=== PATIENT | female | born 1945 | race Caucasian/White ===

== ENCOUNTER 2016-09-13 07:58 | Inpatient (IN) ==
--- NOTE | 2016-09-13 07:51 | Discharge Summary ---
<Yelena Bingham - Last Filed: 09/13/16 07:49> Date of Encounter: 09/13/16 - Discharge Medications Prescriptions: Tramadol HCl [Ultram] 50 mg PO TID PRN #30 tab PRN Reason: Pain Home Medications: Allopurinol [Zyloprim 100 MG] 100 mg PO BID 09/13/16 [History] Aspirin Enteric Coated [Aspirin EC] 325 mg PO DAILY #21 tablet. 09/13/16 [Rx] Calcium Carbonate/Vitamin D3 [Calcium 600 + Vit D Tablet] 1 tab PO DAILY [History] Cetirizine HCl [All Day Allergy] 10 mg PO DAILY 09/13/16 [History] Furosemide [Lasix] 20 mg PO DAILY PRN 09/13/16 [History] Metoprolol XL (24 HR) Succ [Toprol Xl] 50 mg PO 1200 09/13/16 [History] Prazosin HCl [Minipress] 2 mg PO BID 09/13/16 [History] Quinapril HCl [Accupril] 10 mg PO HS 09/13/16 [History] Tramadol HCl [Ultram] 50 mg PO TID PRN #30 tab 09/16/16 [Rx] Allergies/Adverse Reactions: Allergies latex Allergy (Verified 09/13/16 09:54) Hives TESTED NEGATIVE Primary care physician: Brad Davis, - Patient Status Disposition: Transfer Inpatient Rehab Fac Condition: Fair - Discharge Instructions Follow Up With: Charles Craven MD [Partnered Physician] - 10/13/16 5:10 pm Yelena Bingham, PAC [Physician Database Reporting Consultant] - 09/23/16 8:30 am Brad Davis DO [Primary Care Provider] - Additional Instructions: Discharge Instructions: Total Knee Replacement Please call [facility] ([phone]), your Primary Care Physician, or report to the Emergency Room if you have any of the following symptoms: Nausea, vomiting, fever greater that 101.5, swelling, chest pain, shortness of breath, increased pain/redness/drainage/odor for your incision site, numbness/ tingling, or any other concerning symptoms. ACTIVITY:Weight-bearing as tolerated. You may progress off support (crutches or walker) as tolerated. MEDICATIONS: Upon discharge resume your home medications. Take all the medications as prescribed. Take a stool softener if taking narcotic pain medications. Stool softeners are only effective if you drink enough fluids. Drink 6-8 glass of water or fluids a day, unless this is not allowed for another health problem. Despite using stool softeners, if you haven't had a bowel movement in 3 days, please switch to a gentle laxative. Gentle laxatives are sold over the counter. You should have a bowel movement within 24 hours, if not call the office. You will be discharged from the hospital with a prescription for pain medication. You are encouraged to decrease the use of narcotic pain medication as tolerated. Should you require a refill, please call the office. [facility] prescribes narcotic pain medication for only 4-6 weeks after surgery. If you require pain medication beyond this time period, you may be referred to your Primary Care Physician or to the Pain Clinic for further evaluation. Plan ahead for refills on pain medication as many narcotics either need to be picked up at the office or mailed. It is best to call 48-72 hours in advance of needing a prescription refill so you don't run out of medication. To help control the post-operative pain, you may take NSAIDs (Aleve,Advil, Motrin, Ibuprofen, Naprosyn) or Tylenol as prescribed on the bottle in addition to the pain medication. ANTICOAGULATION (blood thinners): Continue your Aspirin, Lovenox or Coumadin as prescribed to help prevent a blood clot in the leg or in the lungs. As long as your incision remains dry and you tolerate the NSAIDs (Aleve, Advil, Motrin, ibuprofen, naprosyn), it is OK to use the NSAIDS while you are taking your anticoagulation medication. Should your incision start to drain, stop the NSAID and contact our office. Common symptoms of blood clot in the legs include: localized pain, swelling, calf tenderness, redness or discoloration of the skin. Blood clot in the lung symptoms include: shortness of breath, rapid pulse, sweating, and chest pain that worsens with deep breathing, coughing up blood, lightheadedness, feelings of anxiety. If you experience any of these symptoms notify your physician immediately, go to the emergency room, or if having trouble breathing, call 911. WOUND CARE: Leave the dressing on for 7 to 10days. You may change the dressing if it becomes saturated greater than 50%. Do not get the dressing wet at anytime. Wash your hands with antibacterial soap, rinse and dry prior to any wound care. If you have dee the visiting nurse or rehab facility can remove the stapes 10-14 days after surgery and place steri-strips across the wound. Leave the steri-strips in place until they fall off on their won. You may let water from the shower run on top of the steri-strips. If you do not have a visiting nurse or rehab facility, you will need to return to the office at 10-14 days for the dee to be removed. If you have itching or redness around the dressing call the office. FOLLOW-UP: Please follow up with your surgeon in the orthopedic clinic in 4 weeks from the day of surgery. If you have dee that need to be removed, you will need to come back to the office in 10-14 days from the day of surgery. - Hospital Course Hospital course: Ms. Avila is a 71 year old female - Time Spent with Patient Total time spent providing and/or coordinating discharge services: <Fiona Soria - Last Filed: 09/13/16 09:45> Date of Encounter: 09/13/16 - Discharge Diagnosis (1) Arthritis of left knee Priority: Primary Status: Acute (2) Hypertension Priority: Secondary Status: Chronic Qualifiers: Hypertension type: unspecified secondary hypertension Qualified Code(s): I15.9 - Secondary hypertension, unspecified; I15 - Secondary hypertension (3) Chronic renal failure, stage 3 (moderate) Priority: Secondary Status: Chronic (4) Morbid obesity with BMI of 60.0-69.9, adult Priority: Secondary Status: Chronic Primary care physician: Brad Davis, - Hospital Course Hospital course: Ms. Avila is a 71 year old female - Time Spent with Patient Total time spent providing and/or coordinating discharge services: <Charles Craven - Last Filed: 09/16/16 07:49> Date of Encounter: 09/16/16 Time of Encounter: 07:46 - Discharge Diagnosis (1) Arthritis of left knee Priority: Primary Status: Acute (2) Hypertension Priority: Secondary Status: Chronic Qualifiers: Hypertension type: unspecified secondary hypertension Qualified Code(s): I15.9 - Secondary hypertension, unspecified; I15 - Secondary hypertension (3) Chronic renal failure, stage 3 (moderate) Priority: Secondary Status: Chronic (4) Morbid obesity with BMI of 60.0-69.9, adult Priority: Secondary Status: Chronic (5) Acute blood loss anemia Priority: Primary Status: Acute Primary care physician: Brad Davis, - Patient Status Functional capacity at discharge: uses cane/walker Overall status at discharge: patient is progressing back to baseline - Hospital Course Hospital course: Ms. Avila is a 71 year old female The patient had an uneventful postoperative course. They received antibiotics and physical therapy and were discharged in stable condition. There will follow -up in the office in 2 weeks. Patient is elevation of creatinine which normalized with fluid. Aspirin DVT prophylaxis - Time Spent with Patient Total time spent providing and/or coordinating discharge services:
[2016-09-13] MEDS ORDERED: CeFAZolin Pre 3,000 MG/100 ML 3,000 MG/100 ML BAG IVPB ONE (08:26)
[2016-09-13] MEDS ORDERED: Lidocaine -MPF 1% 2 ML VIAL ID ONE (08:26)
[2016-09-13] MEDS ORDERED: *HR* Succinylcholine 200 MG/10 ML VIAL IVP ONE (08:27)
[2016-09-13] MEDS ORDERED: *HR* FentaNYL (PF) 100 MCG/2 ML VIAL ONE (08:27)
[2016-09-13] MEDS ORDERED: 0.9 % Sodium Chloride 1,000 ML IVC SCH (08:30)
[2016-09-13] MEDS ORDERED: *HR* Midazolam HCl 2 MG/2 ML VIAL ONE (08:57)
[2016-09-13] MEDS ORDERED: *HR* Propofol 200 MG/20 ML VIAL IVP ONE (08:57)
[2016-09-13] MEDS ORDERED: 0.9 % Sodium Chloride 500 ML IVC SCH (09:00)
[2016-09-13] MEDS ORDERED: ROPIVACAINE HCL/PF 0.5% 30 ML VIAL ONE (09:01)
[2016-09-13] MEDS ORDERED: Tetracaine/PF 20 MG/2 ML AMPUL ONE (09:01)
--- NOTE | 2016-09-13 09:08 | History & Physical Report ---
Date of Encounter: 09/13/16 Time of Encounter: 09:08 24 Hour HP Update - Instructions Instructions: If the History and Physical is less than 30 days old and was completed prior to A.M. admission and or procedure and has NOT been updated on calendar day of procedure please complete this update prior to performing procedure. - Update Patient reports changes in Medical Condition: No Changes in examination, assessment, or condition: No Changes in Medication: No Preop tests/diagnostics Reviewed: Yes Surgery Remains Indicated: Yes Consent for Planned Operative Procedure(s) Verified: Yes - Pre-Operative Checklist Preoperative Checklist Indicated: No Prophylactic Antibiotic Ordered: Yes Is VTE Prophylaxis Indicated?: Yes
--- NOTE | 2016-09-13 09:18 | Anesthesia Evaluation PreOp ---
Date of Encounter: 09/13/16 Time of Encounter: 09:12 - Past History Planned Operation: l tka Cardiac History: HTN, Other (sleeps in recliner, unknown orthopnea, clyde pnd) Pulmonary History: Snore CONCESSIONIST History: Denies Any Significant HX Other Medical History: Renal (stage III) Anesthesia History: No Prior Anesthetic Complications, Past Anesthesia ( cholecyst, btl) Alcohol Use: none Drug use: none Medications and Allergies Aspirin Enteric Coated [Aspirin EC] 325 mg PO DAILY #21 tablet. 09/13/16 [Rx] OxyCODONE Immed Rel [Roxicodone 5 MG] 5 - 10 mg PO Q6HR PRN #40 tablet 09/13/16 [Rx] Allergies latex Allergy (Unverified 08/31/16 11:28) Hives - Meds/Allergy Pre-op Review Medications Reviewed: Yes Allergies Reviewed: Yes Beta Blockers on Current Med List: Yes If Beta Blockers taken, Date/Time (Last Dose taken): metoprolol 09/12 at 12:00 Anesthesia Results - Labs Laboratory Tests 08/31/16 08/31/16 08/31/16 11:45 11:45 11:45 Hgb 12.2 Hct 37.6 Plt Count 407 H PT 11.5 INR 1.1 APTT 30.0 Sodium 138 Potassium 4.2 Creatinine 1.24 H - Imaging EKG: report reviewed (sv rhythm) Anesthesia Exam Vital Signs/O2 Sat/Glucose, Most Current Temp Pulse Resp BP Pulse Ox 09/13/16 08:44 98.7 F 82 18 153/78 97 09/13/16 08:38 98.7 F 82 18 153/78 97 O2 Sat Height 1.52 m Height 1.52 m Height 1.52 m Weight 140.16 kg Weight 140.16 kg Weight 140.16 kg O2 Sat by Pulse Oximetry 97 O2 Sat by Pulse Oximetry 97 Vital Signs Temp Pulse Resp BP Pulse Ox 98.7 F 82 18 153/78 97 09/13/16 08:38 09/13/16 08:38 09/13/16 08:38 09/13/16 08:38 09/13/16 08:38 Height: 1.5 Weight: 140 NPO (# of Hours): >8 - HEENT Pupil (Motor): Pupils equal, EOMI Mallampati: III (JULIETA needed) Teeth: Poor dentition Oral Opening: Greater than 3 (good underbite) - CONCESSIONIST LOC: Oriented CONCESSIONIST Motor: Normal RUE, Normal LUE, Normal RLE, Normal LLE, Normal Face CONCESSIONIST Sensory: Normal: RUE, LUE, RLE, LLE, Face - Cardiac Rhythm: Regular Murmur: None - Pulmonary Breath Sounds: bilateral Clear Respiratory Effort: Symmetrical Anesthesia Assess/Plan ASA Score: 4 (super mo. preox in reverse tberg with intubation via JULIETA in reverse tberg) Modified [place] Scale for Level of Consciousness: Anixous, agitated or restless Anesthetic Plan: General, Regional Monitoring Plan: Standard Monitors Recovery Plan: PACU
--- NOTE | 2016-09-13 09:52 | Anesthesia Procedures ---
Date of Encounter: 09/13/16 Time of Encounter: 09:50 Procedures: Anesthesia - Nerve Block Procedure Date: 09/13/16 Time: 09:50 Allergies/Adv Reactions: Allergies latex Allergy (Unverified 08/31/16 11:28) Hives Pre-op Diagnosis: oa left knee Surgical Procedure: left total knee Checklist: Correct Patient Identifier, Correct procedure, History checked Correct side: Left Blood Thinner: No Monitor Applied: EKG, BP, Pulse Oximetry Supplemental Oxygen via Nasal Cannula (L/min): 2 Sedation: Versed (mg): 2 Sedation: Fentanyl (mcg): 100 Indication: Post Op Analgesia Pre-op Neuro Deficits: No Block Type: Femoral (0.5% ropivicaine 30 cc), Other (iPACK 20cc 0.25% bupivicaine with clonidine) Catheter placed: No Sterile Technique: Yes Ultrasound used: Yes Anatomy identified: Yes Visual spread of Local: Yes Neuro Stimulation: Yes (femoral) Nerve Stimulator Range: 0.2 - 0.4 mA Smooth Injection of Local: Yes Pain with Injection of Local: No Prep: Chlorhexadine Needle: 21 x 100 mm Stimuplex Local: 0.25% Bupivicaine w/Clonidine 20 mcg/cc, Ropivacaine Volume (cc): 50 Number of Attempts: 1 Complications: None/effective block Comments: Peripheral nerve blocks under ultrasound guidance for postoperative pain relief per Dr Craven's request.
[2016-09-13] MEDS ORDERED: Ondansetron 4 MG/2 ML VIAL IVP ONE (10:27)
[2016-09-13] MEDS ORDERED: *HR* Promethazine 25 MG/ML VIAL IVP PRN (10:27)
[2016-09-13] MEDS ORDERED: Dexamethasone 4 MG/ML VIAL ONE (10:36)
--- NOTE | 2016-09-13 11:08 | Orthopedic Operative Note ---
Date of procedure: 09/13/16 Pre-op diagnosis: Left knee arthritis Post-op diagnosis: same Procedure: Procedure: Total knee replacement Estimated blood loss: 300 cc Hardware: Biomet SSk Femur: 65 16 x 120 stem Tibia: 71 12 x 120 stem Ariana insert: 14 Patella: 34 Exam Under anesthesia: Loss full extension and 30 degrees flexion 90 degrees varus alignment rotational deformity Procedural Notes: Grade 4 arthritic changes medial compartment patellofemoral joint. Operative procedure: The patient was brought to the operating room and placed on the operating room table. After general anesthesia was administered the operative knee was examined. Findings were noted in the exam under anesthesia. The operative extremity was prepped and draped in sterile surgical fashion. The patient received IV antibiotics prior to skin incision. A standard midline incision was made centered over the patella. The incision was made through the skin and subcutaneous tissue. A medial parapatellar tendon approach was performed. Care was taken to preserve tissue along the medial aspect of the patella. And to protect the patella tendon. The deep MCL was released off the medial tibia. The infra patella fat pad was excised. Knee was brought into flexion. Patient noted to have grade 4 arthritic changes medial compartment patellofemoral joint. The entry hole was made for the intramedullary femoral guide. The guide was seated in 6 degrees of valgus. Anterior cut was made followed by the distal cut. The ACL the PCL the medial and the lateral menisci were excised. The tibia was subluxed forward. The entry hole was made for the intramedullary tibial guide. Guide was seated to resect 2 mm off the more abnormal side. The knee was brought into flexion the distal femur was sized to a 65-. The femur was first reamed to a 16 x 120. . The femoral guide was seated, the anterior cut was made followed by the posterior condylar cut, followed by the chamfer cuts. The finishing guide was seated the box cut was made. The tibia was sized to a 71 The tibia was first reamed well by 120. Trial reduction revealed full extension no varus valgus instability with the appropriate 14 insert. The patella was everted and cut was made at the level of the insertion of the quadriceps and patella tendon. The patella was sized to a 34 the guide was seated and the lug holes are drilled. Trial reduction revealed excellent patella tracking. All trial components were removed all bony surfaces were irrigated. Components were assembled on the back table. The femur was cemented first followed by the tibia. The 14 Ariana was seated and secured. The knee was brought into full extension. The patella was cemented and held in place with the patellar holding clamp. After the cement had hardened, the knee sat for 2 minutes with a Betadine saline solution. The knee was then irrigated out with 2 L of pulse irrigation. The extensor mechanism was with #2 FiberWire suture and #2 PDS suture. The subcutaneous tissue was then irrigated and closed deep with #1 PDS suture superficially with 0 PDS suture and skin was closed with skin dee The patient was then placed in a sterile dressing and a postoperative brace extubated and transferred to recovery room in stable condition. Anesthesia: CLAUDIA Surgeon: Charles Craven Chemical Plant Operator Supervisor: Yelena Bingham Condition: stable Disposition: PACU
[2016-09-13] MEDS: *HR* Morphine 2 MG/ML SYRINGE IVP PRN ×2 (11:57→12:14)
[2016-09-13] MEDS: *HR* HYDROmorphone (PF) 1 MG/ML SYRINGE IVP PRN ×2 (12:27→12:36)
--- NOTE | 2016-09-13 12:53 | Anesthesia Evaluation Post Op ---
Date of Encounter: 09/13/16 Time of Encounter: 12:52 - Vital Signs Vital Signs: O2 Sat Height 1.52 m Height 1.52 m Height 1.52 m Weight 140.16 kg Weight 140.16 kg Weight 140.16 kg O2 Sat by Pulse Oximetry 95 O2 Sat by Pulse Oximetry 98 O2 Sat by Pulse Oximetry 96 O2 Sat by Pulse Oximetry 94 O2 Sat by Pulse Oximetry 95 O2 Sat by Pulse Oximetry 98 O2 Sat by Pulse Oximetry 98 O2 Sat by Pulse Oximetry 98 O2 Sat by Pulse Oximetry 96 O2 Sat by Pulse Oximetry 97 O2 Sat by Pulse Oximetry 97 Vital Signs Temp Pulse Resp BP Pulse Ox 98.7 F 82 18 153/78 97 09/13/16 08:38 09/13/16 08:38 09/13/16 08:38 09/13/16 08:38 09/13/16 08:38 Vital Signs/O2 Sat/Glucose, Most Current Temp Pulse Resp BP Pulse Ox 09/13/16 12:37 89 18 162/56 95 09/13/16 12:27 96 18 166/87 98 09/13/16 12:17 97.7 F 95 18 177/91 96 09/13/16 12:07 98 20 172/77 94 09/13/16 11:57 100 20 166/80 95 09/13/16 11:47 97.8 F 105 24 169/96 98 09/13/16 10:04 87 98 178/70 98 09/13/16 09:50 86 18 192/85 98 09/13/16 09:32 85 18 184/109 96 - Lungs Lungs: Clear Ascult./Percussion - Airway Airway: Non-obstructed - Cardiovascular Regular Rate - Mental Status Mental Status: Alert & Oriented, Answers Appropriately - Pain Pain Scale: 3 - Nausea Vomiting Nausea Vomiting: Not Present - Hydration Hydration: Ice chips - Discharge PostOp Status: Transfer Patient to floor
[2016-09-13 12:58] LABS: Hemoglobin 11.4 g/dL (11.5-15.4)
[2016-09-13] MEDS ORDERED: Furosemide 20 MG TABLET PO PRN (13:09)
[2016-09-13] MEDS ORDERED: MOM Conc 10 ML UD.LIQ PO PRN (13:09)
[2016-09-13] MEDS ORDERED: Naloxone 0.4 MG/ML INJ IVP PRN (13:09)
[2016-09-13] MEDS ORDERED: Temazepam 15 MG CAPSULE PO PRN (13:09)
[2016-09-13] MEDS ORDERED: Ondansetron 4 MG/2 ML VIAL IVP PRN (13:09)
[2016-09-13] MEDS ORDERED: Sennosides 8.6 MG TABLET PO PRN (13:09)
[2016-09-13] MEDS ORDERED: *HR* HYDROmorphone (PF) 1 MG/ML SYRINGE IVP PRN (13:09)
[2016-09-13] MEDS: *HR* OxyCODONE Immed Rel 5 MG TABLET PO PRN ×2 (13:34→18:02)
[2016-09-13] MEDS: Ringers Solution, Lactated 1,000 ML IVC SCH (13:34)
[2016-09-13] MEDS: Metoprolol XL (24 HR) Succ 50 MG TAB.ER.24H PO SCH (13:40)
[2016-09-13] MEDS: ceFAZolin 3,000 MG in D5% in Water 100 ML IVPB SCH (15:50)
[2016-09-13] MEDS ORDERED: *HR* Enoxaparin 30 MG/0.3 ML SYRINGE SQ SCH (18:00)
[2016-09-13] MEDS: *HR* Enoxaparin 30 MG/0.3 ML SYRINGE SQ SCH (18:02)
[2016-09-14] MEDS: ceFAZolin 3,000 MG in D5% in Water 100 ML IVPB SCH (00:07)
[2016-09-14] MEDS: *HR* OxyCODONE Immed Rel 5 MG TABLET PO PRN ×4 (03:39→17:51)
[2016-09-14] MEDS: Ringers Solution, Lactated 1,000 ML IVC SCH (04:29)
[2016-09-14] MEDS: *HR* Enoxaparin 30 MG/0.3 ML SYRINGE SQ SCH ×2 (04:35→17:50)
[2016-09-14 05:22] LABS: Hematocrit 31.8 % (35.3-44.9); Hemoglobin 10.3 g/dL (11.5-15.4)
[2016-09-14 05:56] LABS: Calcium 8.7 mg/dL (8.6-10.8); Potassium 4.2 mEq/L (3.5-4.5)
--- NOTE | 2016-09-14 06:40 | Orthopedics Progress Note ---
Date of Encounter: 09/14/16 Time of Encounter: 06:39 - Assessment and Plan (1) Arthritis of left knee Current Visit: Yes Status: Acute (2) Hypertension Current Visit: Yes Status: Chronic Qualifiers: Hypertension type: unspecified secondary hypertension Qualified Code(s): I15.9 - Secondary hypertension, unspecified; I15 - Secondary hypertension (3) Chronic renal failure, stage 3 (moderate) Current Visit: Yes Status: Chronic (4) Morbid obesity with BMI of 60.0-69.9, adult Current Visit: Yes Status: Chronic Subjective Interval history: Patient was seen this morning doing well without complaints. Afebrile vital signs stable. Operative extremity: Neurovascularly intact Dressing clean dry and intact Calves nontender Assessment and plan: Continue with postoperative care Hematocrit 31 Objective Vital signs: Vital Signs Temp Pulse Resp BP Pulse Ox 09/14/16 04:16 97.4 F L 69 17 119/72 90 09/13/16 23:36 98.2 F 85 17 155/80 97 09/13/16 20:08 98.5 F 91 17 156/82 97 09/13/16 19:57 96 09/13/16 16:07 98.1 F 93 16 149/69 96 09/13/16 15:30 98.0 F 95 16 166/71 95 09/13/16 14:00 98.8 F 90 16 137/81 94 09/13/16 13:11 98.5 F 88 14 152/84 95 09/13/16 13:01 89 16 148/85 96 09/13/16 12:47 97.1 F L 88 18 147/79 93 09/13/16 12:37 89 18 162/56 95 09/13/16 12:27 96 18 166/87 98 09/13/16 12:17 97.7 F 95 18 177/91 96 09/13/16 12:07 98 20 172/77 94 09/13/16 11:57 100 20 166/80 95 09/13/16 11:47 97.8 F 105 24 169/96 98 09/13/16 10:04 87 98 178/70 98 09/13/16 09:50 86 18 192/85 98 09/13/16 09:32 85 18 184/109 96 09/13/16 09:23 98.4 F 100 14 144/80 95 09/13/16 08:44 98.7 F 82 18 153/78 97 09/13/16 08:38 98.7 F 82 18 153/78 97 Intake and Output 09/13/16 09/13/16 09/14/16 15:59 23:59 07:59 Intake Total 100 / 100 900 / 900 1200 / 1200 Output Total 400 / 400 100 / 100 Balance -300 / -300 800 / 800 1200 / 1200 Intake: IV Fluids 100 / 100 100 / 100 1000 / 1000 Lactated Ringers 1,000 ML 1000 / 1000 @ 75 mls/hr IVC .[id number] LEONEL Rx#:[id number] Ancef 3,000 MG In 100 / 100 Dextrose 5% 100 ML @ 200 mls/hr IVPB Q8HR LEONEL Rx#: [id number] Ancef Premix 3,000 MG/100 100 / 100 ML 3,000 mg In 100 ml @ 200 mls/hr IVPB PREOP ONE Rx#:[id number] Oral 800 / 800 200 / 200 Output: Urine 100 / 100 Estimated Blood Loss 400 / 400 Other: # Voids 1 Weight 140.16 kg - Labs CBC & BMP: 09/14/16 05:03 09/14/16 05:03 Labs: Abnormal lab results Hgb 10.3 g/dL (11.5-15.4) L 09/14/16 05:03 Hct 31.8 % (35.3-44.9) L 09/14/16 05:03 Creatinine 1.59 mg/dL (0.57-1.11) H 09/14/16 05:03 Est GFR ( Amer) 39 (> 60) L 09/14/16 05:03 Est GFR (Non-Af Amer) 32 (> 60) L 09/14/16 05:03 Glucose 122 mg/dL (70-99) H 09/14/16 05:03 - VTE Documentation of Mechanical Device: Venous foot pump, device Consult Discharge Plan - Plan Referrals: Brad Davis DO [Primary Care Provider] -
[2016-09-14] MEDS: Loratadine 10 MG TABLET PO SCH (07:55)
[2016-09-14] MEDS: CALCIUM CARBONATE PO SCH (07:57)
[2016-09-14] MEDS: VITAMIN D3 PO SCH (07:57)
[2016-09-14] MEDS: Metoprolol XL (24 HR) Succ 50 MG TAB.ER.24H PO SCH (12:07)
[2016-09-14 17:36] LABS: Bilirubin,Urine Negative (Negative); Blood,Urine Small (Negative); Clarity,Urine Turbid (Clear); Color,Urine Dark Yellow (Yellow); Glucose,Urine (UA) Normal (Normal); Ketones,Urine Trace mg/dL (Negative); Leukocyte Esterase,Urine Large (Negative); Nitrite,Urine Negative (Negative); PH,Urine 5.5 pH Units (5.0-8.0); Protein,Urine 30 mg/dL (Neg-Trace); Specific Gravity,Urine 1.027 (1.010-1.025); Urobilinogen,Urine Normal (Normal)
[2016-09-14 17:38] LABS: Bacteria,Urine None Seen per hpf (None-Few); Squamous Epithelial Cell,Urine Many per lpf (None-Few); WBC,Urine TNTC per hpf (0-3)
[2016-09-15] MEDS: *HR* Enoxaparin 30 MG/0.3 ML SYRINGE SQ SCH ×2 (05:12→16:46)
[2016-09-15] MEDS: *HR* OxyCODONE Immed Rel 5 MG TABLET PO PRN ×2 (05:22→11:54)
[2016-09-15 05:30] LABS: Hematocrit 29.8 % (35.3-44.9); Hemoglobin 9.4 g/dL (11.5-15.4)
[2016-09-15 05:46] LABS: Calcium 8.6 mg/dL (8.6-10.8); Potassium 4.2 mEq/L (3.5-4.5)
--- NOTE | 2016-09-15 07:55 | Orthopedics Progress Note ---
Date of Encounter: 09/15/16 Time of Encounter: 07:54 - Assessment and Plan (1) Arthritis of left knee Current Visit: Yes Status: Acute (2) Hypertension Current Visit: Yes Status: Chronic Qualifiers: Hypertension type: unspecified secondary hypertension Qualified Code(s): I15.9 - Secondary hypertension, unspecified; I15 - Secondary hypertension (3) Chronic renal failure, stage 3 (moderate) Current Visit: Yes Status: Chronic (4) Morbid obesity with BMI of 60.0-69.9, adult Current Visit: Yes Status: Chronic (5) Acute blood loss anemia Current Visit: Yes Status: Acute Subjective Interval history: Patient was seen this morning doing well without complaints. Afebrile vital signs stable. Operative extremity: Neurovascularly intact Dressing clean dry and intact Calves nontender Assessment and plan: Continue with postoperative care Hematocrit 29.4, patient with history of kidney disease elevation in creatinine. We will treat with IV fluids. Objective Vital signs: Vital Signs Temp Pulse Resp BP Pulse Ox 09/15/16 07:00 94 09/15/16 06:44 100.9 F H 84 16 138/73 94 09/15/16 04:00 100.4 F H 84 18 131/63 95 09/14/16 20:17 98.4 F 85 17 134/66 92 09/14/16 19:00 92 09/14/16 15:02 99.2 F 95 18 147/78 95 09/14/16 11:13 98.5 F 86 18 123/69 96 Intake and Output 09/14/16 09/14/16 09/15/16 15:59 23:59 07:59 Intake Total 400 / 400 100 / 100 Output Total 50 / 50 Balance -50 / -50 400 / 400 100 / 100 Intake: IV Fluids 100 / 100 Oral 300 / 300 100 / 100 Output: Urine 50 / 50 Other: Meal Dinner Percent of Meal Consumed 25% # Voids 1 - Labs CBC & BMP: 09/15/16 04:11 09/15/16 04:11 Labs: Abnormal lab results Hgb 9.4 g/dL (11.5-15.4) L 09/15/16 04:11 Hct 29.8 % (35.3-44.9) L 09/15/16 04:11 BUN 29 mg/dL (7-20) H D 09/15/16 04:11 Creatinine 2.07 mg/dL (0.57-1.11) H 09/15/16 04:11 Est GFR ( Amer) 29 (> 60) L 09/15/16 04:11 Est GFR (Non-Af Amer) 24 (> 60) L 09/15/16 04:11 Glucose 110 mg/dL (70-99) H 09/15/16 04:11 Urine Clarity Turbid (Clear) A 09/14/16 17:15 Ur Specific [place] 1.027 (1.010-1.025) H 09/14/16 17:15 Urine Protein 30 mg/dL (Neg-Trace) H 09/14/16 17:15 Urine Ketones Trace mg/dL (Negative) H 09/14/16 17:15 Urine Blood Small (Negative) H 09/14/16 17:15 Ur Leukocyte Esterase Large (Negative) H 09/14/16 17:15 Urine Microscopic RBC 5-15 per hpf (0-3) H 09/14/16 17:15 Urine Microscopic WBC TNTC per hpf (0-3) H 09/14/16 17:15 Ur Squamous Epith Cells Many per lpf (None-Few) H 09/14/16 17:15 Ur Culture Indicated? YES (NO) A 09/14/16 17:15 - VTE Documentation of Mechanical Device: Venous foot pump, device Consult Discharge Plan - Plan Referrals: Brad Davis DO [Primary Care Provider] -
[2016-09-15] MEDS: VITAMIN D3 PO SCH (08:35)
[2016-09-15] MEDS: CALCIUM CARBONATE PO SCH (08:35)
[2016-09-15] MEDS: Loratadine 10 MG TABLET PO SCH (08:36)
[2016-09-15] MEDS: Metoprolol XL (24 HR) Succ 50 MG TAB.ER.24H PO SCH (11:54)
[2016-09-15] MEDS ORDERED: Acetaminophen IV 1,000 MG/100 ML INFUS..BTL IVPB PRN (15:08)
[2016-09-16 04:26] LABS: Calcium 8.8 mg/dL (8.6-10.8); Potassium 4.2 mEq/L (3.5-4.5)
[2016-09-16] MEDS ORDERED: traMADol 50 MG TABLET PO PRN ×3 (05:19→07:02)
[2016-09-16] MEDS: *HR* Enoxaparin 30 MG/0.3 ML SYRINGE SQ SCH (06:34)
[2016-09-16 06:59] VITALS: BP 160/82
[2016-09-16] MEDS ORDERED: traMADol 50 MG TABLET ONE (07:35)
--- NOTE | 2016-09-16 07:49 | Orthopedics Progress Note ---
Date of Encounter: 09/16/16 Time of Encounter: 07:49 - Assessment and Plan (1) Arthritis of left knee Current Visit: Yes Status: Acute (2) Hypertension Current Visit: Yes Status: Chronic Qualifiers: Hypertension type: unspecified secondary hypertension Qualified Code(s): I15.9 - Secondary hypertension, unspecified; I15 - Secondary hypertension (3) Chronic renal failure, stage 3 (moderate) Current Visit: Yes Status: Chronic (4) Morbid obesity with BMI of 60.0-69.9, adult Current Visit: Yes Status: Chronic (5) Acute blood loss anemia Current Visit: Yes Status: Acute Subjective Interval history: Patient was seen this morning doing well without complaints. Afebrile vital signs stable. Operative extremity: Neurovascularly intact Dressing clean dry and intact Calves nontender Assessment and plan: Continue with postoperative care Patient creatinine normalized following fluid treatment. Discharge today Objective Vital signs: Vital Signs Temp Pulse Resp BP Pulse Ox 09/16/16 06:58 99.3 F 88 18 160/82 94 09/16/16 03:10 99.1 F 82 18 96 09/16/16 00:26 98.9 F 85 15 137/72 94 09/15/16 12:20 98.9 F 109 18 139/87 93 Intake and Output 09/15/16 09/15/16 09/16/16 15:59 23:59 07:59 Intake Total 1350 / 1350 1200 / 1200 Balance 1350 / 1350 1200 / 1200 Intake: IV Fluids 1050 / 1050 1000 / 1000 0.45% Sodium Chloride 950 / 950 1000 / 1000 1000 Ml 1000 Ml 1,000 ML @ 125 mls/hr IVC .Q8H LEONEL Rx#:[id number] Ofirmev 1,000 mg/100 ml 1 100 / 100 ,000 mg In 100 ml @ 400 mls/hr IVPB Q6HR PRN Rx#: [id number] Oral 300 / 300 200 / 200 Other: # Voids 1 1 1 # Urine Diapers 1 1 - Labs CBC & BMP: 09/15/16 04:11 09/16/16 03:56 Labs: Abnormal lab results Hgb 9.4 g/dL (11.5-15.4) L 09/15/16 04:11 Hct 29.8 % (35.3-44.9) L 09/15/16 04:11 Sodium 135 mEq/L (136-145) L 09/16/16 03:56 BUN 29 mg/dL (7-20) H 09/16/16 03:56 Creatinine 1.36 mg/dL (0.57-1.11) H 09/16/16 03:56 Est GFR ( Amer) 47 (> 60) L 09/16/16 03:56 Est GFR (Non-Af Amer) 38 (> 60) L 09/16/16 03:56 Glucose 120 mg/dL (70-99) H 09/16/16 03:56 Urine Clarity Turbid (Clear) A 09/14/16 17:15 Ur Specific Malone 1.027 (1.010-1.025) H 09/14/16 17:15 Urine Protein 30 mg/dL (Neg-Trace) H 09/14/16 17:15 Urine Ketones Trace mg/dL (Negative) H 09/14/16 17:15 Urine Blood Small (Negative) H 09/14/16 17:15 Ur Leukocyte Esterase Large (Negative) H 09/14/16 17:15 Urine Microscopic RBC 5-15 per hpf (0-3) H 09/14/16 17:15 Urine Microscopic WBC TNTC per hpf (0-3) H 09/14/16 17:15 Ur Squamous Epith Cells Many per lpf (None-Few) H 09/14/16 17:15 Ur Culture Indicated? YES (NO) A 09/14/16 17:15 - VTE Documentation of Mechanical Device: Venous foot pump, device Consult Discharge Plan - Plan Additional Instructions: Discharge Instructions: Total Knee Replacement Please call [facility] ([phone]), your Primary Care Physician, or report to the Emergency Room if you have any of the following symptoms: Nausea, vomiting, fever greater that 101.5, swelling, chest pain, shortness of breath, increased pain/redness/drainage/odor for your incision site, numbness/ tingling, or any other concerning symptoms. ACTIVITY:Weight-bearing as tolerated. You may progress off support (crutches or walker) as tolerated. MEDICATIONS: Upon discharge resume your home medications. Take all the medications as prescribed. Take a stool softener if taking narcotic pain medications. Stool softeners are only effective if you drink enough fluids. Drink 6-8 glass of water or fluids a day, unless this is not allowed for another health problem. Despite using stool softeners, if you haven't had a bowel movement in 3 days, please switch to a gentle laxative. Gentle laxatives are sold over the counter. You should have a bowel movement within 24 hours, if not call the office. You will be discharged from the hospital with a prescription for pain medication. You are encouraged to decrease the use of narcotic pain medication as tolerated. Should you require a refill, please call the office. [facility] prescribes narcotic pain medication for only 4-6 weeks after surgery. If you require pain medication beyond this time period, you may be referred to your Primary Care Physician or to the Pain Clinic for further evaluation. Plan ahead for refills on pain medication as many narcotics either need to be picked up at the office or mailed. It is best to call 48-72 hours in advance of needing a prescription refill so you don't run out of medication. To help control the post-operative pain, you may take NSAIDs (Aleve,Advil, Motrin, Ibuprofen, Naprosyn) or Tylenol as prescribed on the bottle in addition to the pain medication. ANTICOAGULATION (blood thinners): Continue your Aspirin, Lovenox or Coumadin as prescribed to help prevent a blood clot in the leg or in the lungs. As long as your incision remains dry and you tolerate the NSAIDs (Aleve, Advil, Motrin, ibuprofen, naprosyn), it is OK to use the NSAIDS while you are taking your anticoagulation medication. Should your incision start to drain, stop the NSAID and contact our office. Common symptoms of blood clot in the legs include: localized pain, swelling, calf tenderness, redness or discoloration of the skin. Blood clot in the lung symptoms include: shortness of breath, rapid pulse, sweating, and chest pain that worsens with deep breathing, coughing up blood, lightheadedness, feelings of anxiety. If you experience any of these symptoms notify your physician immediately, go to the emergency room, or if having trouble breathing, call 911. WOUND CARE: Leave the dressing on for 7 to 10days. You may change the dressing if it becomes saturated greater than 50%. Do not get the dressing wet at anytime. Wash your hands with antibacterial soap, rinse and dry prior to any wound care. If you have dee the visiting nurse or rehab facility can remove the stapes 10-14 days after surgery and place steri-strips across the wound. Leave the steri-strips in place until they fall off on their won. You may let water from the shower run on top of the steri-strips. If you do not have a visiting nurse or rehab facility, you will need to return to the office at 10-14 days for the dee to be removed. If you have itching or redness around the dressing call the office. FOLLOW-UP: Please follow up with your surgeon in the orthopedic clinic in 4 weeks from the day of surgery. If you have dee that need to be removed, you will need to come back to the office in 10-14 days from the day of surgery. Referrals: Charles Craven MD [Partnered Physician] - 10/13/16 5:10 pm Yelena Bingham PAC [Physician Security Operations Manager] - 09/23/16 8:30 am Brad Davis DO [Primary Care Provider] - Prescriptions: Tramadol HCl [Ultram] 50 mg PO TID PRN #30 tab PRN Reason: Pain
== END 2016-09-16 08:50 | DRG 470 ==
LOC: SAMDAY 07:58 → 3NENU 13:21
PROVIDERS: ADMIT Orthopaedic Surgery; ATTEND Orthopaedic Surgery

== ENCOUNTER 2017-08-24 08:04 | Inpatient (IN) ==
--- NOTE | 2017-08-21 21:08 | Discharge Summary ---
<Yelena Bingham - Last Filed: 08/21/17 21:04> Date of Encounter: 08/21/17 - Discharge Diagnosis (1) Arthritis of knee, right Priority: Primary Status: Acute (2) Status post total right knee replacement Priority: Primary Status: Acute (3) Hypertension Priority: Secondary Status: Chronic Qualifiers: Hypertension type: essential hypertension Qualified Code(s): I10 - Essential (primary) hypertension (4) Chronic renal failure, stage 3 (moderate) Priority: Secondary Status: Chronic (5) Morbid obesity with BMI of 60.0-69.9, adult Priority: Secondary Status: Chronic - Hospital Course Hospital course: Ms. Avila is a 72 year old female - Time Spent with Patient Total time spent providing and/or coordinating discharge services: - Discharge Medications Home Medications: Allopurinol [Zyloprim 100 MG] 100 mg PO BID 09/13/16 [History] Furosemide [Lasix] 20 mg PO DAILY PRN 09/13/16 [History] Metoprolol XL (24 HR) Succ [Toprol Xl] 50 mg PO DAILY 09/13/16 [History] Prazosin HCl [Minipress] 2 mg PO BID 09/13/16 [History] Cetirizine HCl [All Day Allergy] 10 mg PO DAILY PRN #0 09/24/16 [Rx] Aspirin Enteric Coated [Aspirin EC] 325 mg PO BID #20 tablet.dr 08/21/17 [Rx] OxyCODONE Immed Rel [Roxicodone 5 MG] 5 mg PO Q6HR PRN 7 Days #28 tablet [Rx] Acetaminophen [Tylenol] 500 mg PO BID PRN 08/24/17 [History] Quinapril HCl [Accupril] 20 mg PO DAILY 08/24/17 [History] Allergies/Adverse Reactions: 3 Allergy/AdvReac Type Severity Reaction Status Date / Time latex Allergy Hives Verified 08/24/17 08:39 melon Allergy Hives Verified 08/24/17 08:39 Primary care physician: Brad Davis, - Patient Status Disposition: Transfer Inpatient Rehab Fac Condition: Good - Discharge Instructions Follow Up With: Brad Davis DO [Primary Care Provider] - <Charles Cravenh - Last Filed: 08/28/17 07:53> Orders not resulted at time of discharge: Pending orders 08/24/17 00:01 XR knee RT limited 1-2V [XR] Routine H/H [Hemoglobin and Hematocrit] [HEME] Routine Date of Encounter: 08/28/17 Time of Encounter: 07:53 - Discharge Diagnosis (1) Morbid obesity with BMI of 50.0-59.9, adult Priority: Secondary Status: Chronic (2) Status post total left knee replacement Priority: Secondary Status: Chronic (3) Hypertension Priority: Secondary Status: Chronic Qualifiers: Hypertension type: essential hypertension Qualified Code(s): I10 - Essential (primary) hypertension (4) Chronic renal failure, stage 3 (moderate) Priority: Secondary Status: Chronic (5) Arthritis of knee, right Priority: Primary Status: Acute (6) Status post total right knee replacement Priority: Primary Status: Acute - Hospital Course Hospital course: Ms. Avila is a 72 year old female Status post right total knee replacement The patient had an uneventful postoperative course. They received antibiotics and physical therapy and were discharged in stable condition. There will follow -up in the office in 2 weeks. - Time Spent with Patient Total time spent providing and/or coordinating discharge services: Primary care physician: Brad Davis, - Patient Status Functional capacity at discharge: uses cane/walker Overall status at discharge: patient is progressing back to baseline
[2017-08-24] MEDS ORDERED: CeFAZolin Syr 3,000MG/30 ML 3,000 MG/30 ML SYRINGE IVPB ONE (08:31)
[2017-08-24] MEDS ORDERED: Ringers Solution, Lactated 1,000 ML IVC SCH (08:45)
--- NOTE | 2017-08-24 09:07 | History & Physical Report ---
Date of Encounter: 08/24/17 Time of Encounter: 09:07 24 Hour HP Update - Instructions Instructions: If the History and Physical is less than 30 days old and was completed prior to A.M. admission and or procedure and has NOT been updated on calendar day of procedure please complete this update prior to performing procedure. - Update Patient reports changes in Medical Condition: No Changes in examination, assessment, or condition: No Changes in Medication: No Preop tests/diagnostics Reviewed: Yes Surgery Remains Indicated: Yes Consent for Planned Operative Procedure(s) Verified: Yes - Pre-Operative Checklist Preoperative Checklist Indicated: No Prophylactic Antibiotic Ordered: Yes Is VTE Prophylaxis Indicated?: Yes
[2017-08-24] MEDS ORDERED: Acetaminophen IV 1,000 MG/100 ML INFUS..BTL IVPB ONE (09:08)
[2017-08-24] MEDS ORDERED: *HR* Propofol 200 MG/20 ML VIAL IVP ONE (09:09)
--- NOTE | 2017-08-24 09:18 | Anesthesia Evaluation PreOp ---
Date of Encounter: 08/24/17 Time of Encounter: 09:10 - Past History Planned Operation: Robotic R total knee replacement Cardiac History: HTN Other Medical History: Renal (stage III CKD), Other (BMI 53) Anesthesia History: Past Anesthesia (LTKR), Problems (prolonged drowsiness after L TKR) Alcohol Use: none Drug use: none Medications and Allergies Allopurinol [Zyloprim 100 MG] 100 mg PO BID 09/13/16 [History] Furosemide [Lasix] 20 mg PO DAILY PRN 09/13/16 [History] Metoprolol XL (24 HR) Succ [Toprol Xl] 50 mg PO DAILY 09/13/16 [History] Prazosin HCl [Minipress] 2 mg PO BID 09/13/16 [History] Cetirizine HCl [All Day Allergy] 10 mg PO DAILY PRN #0 09/24/16 [Rx] Aspirin Enteric Coated [Aspirin EC] 325 mg PO BID #20 tablet. 08/21/17 [Rx] OxyCODONE Immed Rel [Roxicodone 5 MG] 5 mg PO Q6HR PRN 7 Days #28 tablet [Rx] Acetaminophen [Tylenol] 500 mg PO BID PRN 08/24/17 [History] Quinapril HCl [Accupril] 20 mg PO DAILY 08/24/17 [History] 3 Allergy/AdvReac Type Severity Reaction Status Date / Time latex Allergy Hives Verified 08/24/17 08:39 melon Allergy Hives Verified 08/24/17 08:39 - Meds/Allergy Pre-op Review Medications Reviewed: Yes Allergies Reviewed: Yes Beta Blockers on Current Med List: Yes If Beta Blockers taken, Date/Time (Last Dose taken): 6am 08/24/17 Anesthesia Results - Labs Laboratory Tests 09/21/16 08/17/17 08/17/17 06:59 08:05 08:05 WBC 9.5 RBC 4.52 Hgb 13.1 Hct 41.3 Plt Count 436 H PT 11.9 INR 1.1 APTT 32.4 Sodium Potassium Chloride Carbon Dioxide BUN Creatinine Glucose 104 H 08/17/17 08:05 WBC RBC Hgb Hct Plt Count PT INR APTT Sodium 143 Potassium 4.8 Chloride 109 H Carbon Dioxide 27 BUN 25 H Creatinine 1.21 H Glucose - Imaging EKG: report reviewed (Interpretive Statements SUPRAVENTRICULAR RHYTHM LOW QRS VOLTAGE IN PRECORDIAL LEADS Electronically Signed On 09-02-2016 22:47:47 EDT by Rich Zaman MD) Anesthesia Exam O2 Sat Height 1.57 m Height 1.57 m Weight 131.088 kg Weight 131.088 kg O2 Sat by Pulse Oximetry 96 Vital Signs Temp Pulse Resp BP Pulse Ox 98.8 F 72 18 140/66 96 08/24/17 08:51 08/24/17 08:51 08/24/17 08:51 08/24/17 08:51 08/24/17 08:51 Height: 62" Weight: 289lbs NPO (# of Hours): >8 - HEENT Pupil (Motor): Pupils equal, EOMI Mallampati: III (easily intubated with glidescope last yr per anes record) Teeth: Poor dentition Oral Opening: Greater than 3 - CUSTOM BOW MAKER LOC: Oriented CUSTOM BOW MAKER Motor: Normal RUE, Normal LUE, Normal RLE, Normal LLE, Normal Face CUSTOM BOW MAKER Sensory: Normal: RUE, LUE, RLE, LLE, Face - Cardiac Rhythm: Regular - Pulmonary Breath Sounds: bilateral Clear Respiratory Effort: Symmetrical Anesthesia Assess/Plan ASA Score: 3 Modified [place] Scale for Level of Consciousness: Cooperative, oriented, and tranquil Anesthetic Plan: General, Regional (will attempt femoral and ipack- may be difficult secondary to morbid obesity) Monitoring Plan: Standard Monitors Recovery Plan: PACU
[2017-08-24] MEDS ORDERED: Propofol 500 MG/50 ML INFUS..BTL ONE ×2 (09:47→11:44)
[2017-08-24] MEDS ORDERED: *HR* Midazolam HCl 2 MG/2 ML VIAL ONE (09:53)
[2017-08-24] MEDS ORDERED: *HR* FentaNYL (PF) 100 MCG/2 ML VIAL ONE (09:53)
[2017-08-24] MEDS ORDERED: Morphine Sulfate/PF 5mg/10mL Vial ONE (10:24)
[2017-08-24] MEDS ORDERED: Bupivacaine/Clonidine Syringe 1 EACH SYRINGE ONE (10:24)
[2017-08-24] MEDS ORDERED: Ethanol\\Acetic Acid\\Na Ace\\Ben 1,000 ML IRRIG.SOLN IR ONE (10:27)
[2017-08-24] MEDS ORDERED: *HR* Promethazine 25 MG/ML VIAL IVP PRN (11:09)
--- NOTE | 2017-08-24 11:13 | Anesthesia Procedures ---
Date of Encounter: 08/24/17 Time of Encounter: 11:00 Procedures: Anesthesia - Lumbar Puncture Patient Position: upright Local Anesthetic Used: Lidocaine 1% - Epidural/Spinal Patient ID/Chart reviewed: Yes Patient examined: Yes Sedation: Fentanyl (mcg): 100 Site Prep: 0.5% Chlorhexidine/Alcohol Patient position: upright Local Anesthetic: Lidocaine 1%
--- NOTE | 2017-08-24 11:16 | Anesthesia Procedures ---
Date of Encounter: 08/24/17 Time of Encounter: 11:00 Procedures: Anesthesia - Epidural/Spinal Patient ID/Chart reviewed: Yes Patient examined: Yes Supplemental Oxygen: Nasal Cannula Sedation: Fentanyl (mcg): 100 Site Prep: 0.5% Chlorhexidine/Alcohol Patient position: upright Local Anesthetic: Lidocaine 1% Amount of Local Anesthetic used: 2 Blood: No CSF: Yes Paresthesia: No Spinal Needle Gauge: 22 Spinal Dose: 3 ml 0.5% bupivacaine, 250 mcgs duramorph Procedure: right robotic total knee
[2017-08-24] MEDS ORDERED: Dexamethasone 4 MG/ML VIAL ONE (11:34)
[2017-08-24] MEDS ORDERED: Ondansetron 4 MG/2 ML VIAL ONE (11:35)
[2017-08-24] MEDS ORDERED: EPHEDrine 50 MG/ML VIAL ONE (11:37)
--- NOTE | 2017-08-24 12:14 | Orthopedic Operative Note ---
Date of procedure: 08/24/17 Pre-op diagnosis: Knee arthritis right Post-op diagnosis: same Procedure: Procedure: Right robotic-assisted Total knee replacement Estimated blood loss: 200 cc Hardware: Metal and polyethylene replacement. Delta Femur: 4 Tibia: 4 TS insert: 9 Patella: 36 Exam Under anesthesia: 15 degree flexion contracture 9 degree varus as calculated by the robot full flexion and no instability Procedural Notes: Operative procedure: The patient was brought to the operating room and placed on the operating room table. After general anesthesia was administered the operative knee was examined. Findings were noted in the exam under anesthesia. The operative extremity was prepped and draped in sterile surgical fashion. The patient received IV antibiotics prior to skin incision. A standard midline incision was made centered over the patella. The incision was made through the skin and subcutaneous tissue. A medial parapatellar tendon approach was performed. Care was taken to preserve tissue along the medial aspect of the patella. And to protect the patella tendon. The deep MCL was released off the medial tibia. The infra patella fat pad was excised. The patella was everted and cut was made at the level of the insertion of the quadriceps and patella tendon. The patella was sized the guide was seated and the lug holes are drilled. Knee was brought into flexion. Patient noted to have Steinmann pins were placed in the tibia and the femur for the tibial and femoral arrays respectively. Checkpoints were also placed in the tibia and the femur for calculation purposes. The knee including the femur and the tibial registered. Osteophytes, ACL and PCL were excised at this point. Extension and flexion were assessed with a valgus stress components were adjusted on the computer to balance the knee. Femoral cuts were made first with robotic assistance, these included the anterior cut posterior cuts chamfer cuts. Tibial cut was then performed with robotic assistance as well. Bone fragments were removed, as well as the medial and lateral meniscus. The size 4 femoral guide was seated box cut was made lug holes are drilled. The size 4 tibial tray was seated and prepared with the fin cutter. Trial reduction with the 9 TS Ariana revealed extension of 3 degree and 6 degree varus full flexion. No varus valgus instability. Trial reduction revealed excellent patella tracking. All trial components were removed all bony surfaces were irrigated. The Tibia was seated followed by the femur, The Ariana size 9 was seated and secured patella. Patient had similar findings for motion and stability. The knee was closed by the PA. The knee was then irrigated out with 2 L of pulse irrigation. The extensor mechanism was closed with #2 FiberWire suture and #2 PDS suture. The subcutaneous tissue was then irrigated and closed deep with #1 PDS suture superficially with 0 PDS suture and skin was closed with zip tie The patient was then placed in a sterile dressing and a postoperative brace extubated and transferred to recovery room in stable condition. Anesthesia: spinal Surgeon: Charles Craven Was there an project administrative assistant present: Yes Hand Packer/Packager: Yelena Bingham Estimated blood loss (cc): 200 Condition: stable Disposition: PACU
[2017-08-24 13:06] LABS: Hematocrit 35.1 % (35.3-44.9); Hemoglobin 11.4 g/dL (11.5-15.4)
--- NOTE | 2017-08-24 13:07 | Anesthesia Procedures ---
Date of Encounter: 08/24/17 Time of Encounter: 12:28 Procedures: Anesthesia - Nerve Block Procedure Date: 08/24/17 Time: 12:28 Surgical Procedure: right robotic total knee Checklist: Correct Patient Identifier, Correct procedure, History checked Correct side: Right Blood Thinner: No Monitor Applied: EKG, BP, Pulse Oximetry Supplemental Oxygen via Nasal Cannula (L/min): 2 Indication: Post Op Analgesia Block Type: Other (adductor canal, iPACK) Catheter placed: No Sterile Technique: Yes Ultrasound used: Yes Anatomy identified: Yes Visual spread of Local: Yes Neuro Stimulation: No Blood on Needle Aspiration: No Smooth Injection of Local: Yes Pain with Injection of Local: No Prep: Chlorhexadine Needle: 21 x 100 mm Stimuplex Local: 0.25% Bupivicaine w/Clonidine 20 mcg/cc Volume (cc): 40 Number of Attempts: 1 Complications: None/effective block Vitals: Vital Signs/O2 Sat, Most Current Temp Pulse Resp BP Pulse Ox 98 F 57 14 152/69 96 08/24/17 13:02 08/24/17 13:02 08/24/17 13:02 08/24/17 13:02 08/24/17 13:02
[2017-08-24] MEDS ORDERED: Furosemide 20 MG TABLET PO PRN (13:12)
[2017-08-24] MEDS ORDERED: MOM Conc 10 ML UD.LIQ PO PRN (13:12)
[2017-08-24] MEDS ORDERED: *HR* OxyCODONE Immed Rel 5 MG TABLET PO PRN (13:12)
[2017-08-24] MEDS ORDERED: Loratadine 10 MG TABLET PO PRN (13:12)
[2017-08-24] MEDS ORDERED: Temazepam 15 MG CAPSULE PO PRN (13:12)
[2017-08-24] MEDS ORDERED: Naloxone 0.4 MG/ML INJ IVP PRN (13:12)
[2017-08-24] MEDS ORDERED: Sennosides 8.6 MG TABLET PO PRN (13:12)
--- NOTE | 2017-08-24 13:12 | Anesthesia Evaluation Post Op ---
Date of Encounter: 08/24/17 Time of Encounter: 13:12 - Vital Signs Vital Signs: Vital Signs/O2 Sat/Glucose, Most Recent Temp Pulse Resp BP Pulse Ox 98 F 57 14 152/69 96 08/24/17 13:02 08/24/17 13:02 08/24/17 13:02 08/24/17 13:02 08/24/17 13:02 - Lungs Lungs: Clear Ascult./Percussion - Airway Airway: Non-obstructed - Cardiovascular Regular Rate - Mental Status Mental Status: Alert & Oriented, Answers Appropriately - Pain Pain Scale: 0 Pain Scale used: Numeric (1 - 10) - Nausea Vomiting Nausea Vomiting: Not Present - Hydration Hydration: NPO - Discharge PostOp Status: Transfer Patient to floor
--- NOTE | 2017-08-24 15:14 | Physician Discharge Referral ---
Home Health/Hosp Referral Info Transfer to: Home Health Provider in Charge Post Discharge: PCP - Diagnosis (1) Arthritis of knee, right Priority: Primary Status: Acute (2) Status post total right knee replacement Priority: Primary Status: Acute (3) Hypertension Status: Chronic (4) Chronic renal failure, stage 3 (moderate) Status: Chronic (5) Morbid obesity with BMI of 60.0-69.9, adult Status: Chronic - Respiratory Orders None Smoking Cessation: Smoking cessation has been advised. For more information, call the [place] Tobacco Quit Line at 0-760-GRJN-NOW. - Diet/Nutrition Diet/Nutrition Orders: Regular - Activity Activity Orders: Up ad [place], Ambulate, Chair, Walker - Services Needed Following services are medically necessary services: Nursing, Home Health Aide, Physical Therapy, Occupational Therapy Home Care Orders: Knee Continuity Opsite dressing, leave intact until first post-operative visit. If dressing becomes >50% saturated, contact office, remove dressing and place appropriate dressing in its place. Do not allow for dressing to get wet. Zipline and Pauline in place, plan to remove at post-operative day #14-16. Total Joint Precautions x 6 weeks Apply cold therapy wrap 3-6x/day for 20 minutes at a time. Encourage ambulation throughout the day Use Incentive spirometer 10x/hour. Elevate affected extremity above heart as tolerated. Brace: Wear knee immobilizer brace at night x 2 weeks - Transfer Medications Prescriptions: OxyCODONE Immed Rel [Roxicodone 5 MG] 5 mg PO Q6HR PRN 7 Days #28 tablet PRN Reason: Severe Pain Aspirin Enteric Coated [Aspirin EC] 325 mg PO BID #20 tablet. Home Medications: Allopurinol [Zyloprim 100 MG] 100 mg PO BID 09/13/16 [History] Furosemide [Lasix] 20 mg PO DAILY PRN 09/13/16 [History] Metoprolol XL (24 HR) Succ [Toprol Xl] 50 mg PO DAILY 09/13/16 [History] Prazosin HCl [Minipress] 2 mg PO BID 09/13/16 [History] Cetirizine HCl [All Day Allergy] 10 mg PO DAILY PRN #0 09/24/16 [Rx] Aspirin Enteric Coated [Aspirin EC] 325 mg PO BID #20 tablet. 08/21/17 [Rx] OxyCODONE Immed Rel [Roxicodone 5 MG] 5 mg PO Q6HR PRN 7 Days #28 tablet [Rx] Acetaminophen [Tylenol] 500 mg PO BID PRN 08/24/17 [History] Quinapril HCl [Accupril] 20 mg PO DAILY 08/24/17 [History] Allergies/Adverse Reactions: 3 Allergy/AdvReac Type Severity Reaction Status Date / Time latex Allergy Hives Verified 08/24/17 08:39 melon Allergy Hives Verified 08/24/17 08:39 Certification: Further, I certify that my clinical findings support that this patient is homebound (i.e. absences from home require considerable and taxing effort and are for medical reasons or hinduism services or infrequently or short duration when for other reasons) because: Homebound Reason: Patient requires assistance of a person or device to safely leave home, Post-surgery restriction and or conditions limit ability to leave home Attestation: My signature below is to certify that this patient is under my care and that I, or nurse practitioner, or a physician's nutrition assistant working with me, has a face-to -face encounter with this patient.
[2017-08-24] MEDS: Ringers Solution, Lactated 1,000 ML IVC SCH (15:47)
[2017-08-24] MEDS: CeFAZolin Syr 3,000MG/30 ML 3,000 MG/30 ML SYRINGE IVPB SCH (15:50)
[2017-08-24] MEDS: Ondansetron 4 MG/2 ML VIAL IVP PRN (16:15)
[2017-08-24] MEDS: *HR* Enoxaparin 30 MG/0.3 ML SYRINGE SQ SCH (16:15)
[2017-08-24] MEDS ORDERED: *HR* Promethazine 25 MG/ML VIAL ONE (17:39)
[2017-08-24] MEDS: *HR* Promethazine 25 MG/ML VIAL IVP PRN (17:45)
[2017-08-24] MEDS ORDERED: *HR* Enoxaparin 30 MG/0.3 ML SYRINGE SQ SCH (18:00)
[2017-08-24] MEDS: Lisinopril 20 MG TABLET PO SCH (20:40)
[2017-08-25] MEDS: CeFAZolin Syr 3,000MG/30 ML 3,000 MG/30 ML SYRINGE IVPB SCH (00:05)
[2017-08-25] MEDS: Ondansetron 4 MG/2 ML VIAL IVP PRN (00:12)
[2017-08-25 01:16] LABS: Hemoglobin 11.7 g/dL (11.5-15.4)
[2017-08-25 01:42] LABS: Potassium 4.2 mEq/L (3.5-5.1)
[2017-08-25] MEDS: *HR* Enoxaparin 30 MG/0.3 ML SYRINGE SQ SCH ×2 (04:09→16:11)
--- NOTE | 2017-08-25 08:14 | Orthopedics Progress Note ---
Date of Encounter: 08/25/17 Time of Encounter: 08:13 - Assessment and Plan (1) Morbid obesity with BMI of 50.0-59.9, adult Current Visit: Yes Status: Chronic (2) Status post total left knee replacement Current Visit: Yes Status: Chronic (3) Hypertension Current Visit: No Status: Chronic Qualifiers: Hypertension type: essential hypertension Qualified Code(s): I10 - Essential (primary) hypertension (4) Chronic renal failure, stage 3 (moderate) Current Visit: No Status: Chronic (5) Arthritis of knee, right Current Visit: No Status: Acute (6) Status post total right knee replacement Current Visit: No Status: Acute Subjective Interval history: Patient was seen this morning doing well without complaints. Afebrile vital signs stable. Operative extremity: Neurovascularly intact Dressing clean dry and intact Calves nontender Assessment and plan: Continue with postoperative care Hematocrit 37 Objective Vital signs: Vital Signs Temp Pulse Resp BP Pulse Ox 08/25/17 07:41 98.6 F 68 18 118/68 97 08/25/17 04:07 98.9 F 67 18 169/76 94 08/25/17 00:22 98.4 F 75 18 112/76 96 08/24/17 19:10 98.9 F 62 16 126/63 93 08/24/17 16:16 98.2 F 61 16 176/78 93 08/24/17 14:30 99.2 F 57 16 127/61 96 08/24/17 14:07 97.9 F 60 16 137/72 97 08/24/17 13:42 98.1 F 56 11 156/76 08/24/17 13:21 97.7 F 57 16 150/65 98 08/24/17 13:02 98 F 57 14 152/69 96 08/24/17 12:52 98 F 57 14 146/72 98 08/24/17 12:42 54 16 151/69 99 08/24/17 12:32 54 18 149/98 100 08/24/17 12:22 97.9 F 61 18 133/60 100 08/24/17 10:52 69 18 214/92 97 08/24/17 10:32 74 18 212/117 97 08/24/17 10:28 55 18 154/83 98 08/24/17 08:51 98.8 F 72 18 140/66 96 Intake and Output 08/24/17 08/25/17 08/25/17 23:59 07:59 15:59 Intake Total 130 / 130 150 / 150 Output Total 50 / 50 400 / 400 Balance 80 / 80 -250 / -250 Intake: IV Fluids 30 / 30 Ancef Syringe 3,000 MG/30 ML 3, 30 / 30 000 mg In 30 ml @ 200 mls/hr IVPB Q8HR [facility] Rx#:[id number] Oral 100 / 100 150 / 150 Output: Urine 50 / 50 400 / 400 Other: # Urine Diapers 2 - Labs CBC & BMP: 08/25/17 00:48 08/25/17 00:48 Labs: Abnormal lab results BUN 24 mg/dL (8-23) H 08/25/17 00:48 Creatinine 1.43 mg/dL (0.60-1.20) H 08/25/17 00:48 Est GFR ( Amer) 44 (> 60) L 08/25/17 00:48 Est GFR (Non-Af Amer) 36 (> 60) L 08/25/17 00:48 Glucose 149 mg/dL (70-105) H 08/25/17 00:48 - VTE Documentation of Mechanical Device: Venous foot pump, device Consult Discharge Plan - Plan Referrals: Brad Davis DO [Primary Care Provider] - Prescriptions: Aspirin Enteric Coated [Aspirin EC] 325 mg PO BID #20 tablet.dr [email or web address] Immed Rel [Roxicodone 5 MG] 5 mg PO Q6HR PRN 7 Days #28 tablet PRN Reason: Severe Pain
[2017-08-25] MEDS: *HR* OxyCODONE/APAP 5/325 TABLET PO PRN (08:37)
[2017-08-25] MEDS ORDERED: Metoprolol XL (24 HR) Succ 50 MG TAB.ER.24H PO SCH (09:00)
[2017-08-25] MEDS ORDERED: Lisinopril 20 MG TABLET PO SCH (09:00)
[2017-08-25] MEDS: *HR* Promethazine 25 MG/ML VIAL IVP PRN (10:24)
--- NOTE | 2017-08-25 12:22 | Event Note ---
Date of Encounter: 08/25/17 Time of Encounter: 12:21 PCR - POD#1 - Right TKR 08/24/17 - Stapled Patient seen at bedside. Labs reviewed. GFR down to 36 (44 baseline) Pain control: adequate - Participating in PT. All questions and concerns addressed. Educated on use of incentive spirometer. Encouraged ambulation and proper hydration. Patient educated on post-operative restrictions and post-operative care. Addressed: see above Discharge plan: [facility]
[2017-08-25] MEDS: Metoprolol XL (24 HR) Succ 50 MG TAB.ER.24H PO SCH (13:19)
--- NOTE | 2017-08-25 15:40 | Physician Discharge Referral ---
ExtendedCare Referral Info Transfer To: ECF Provider in Charge after Transfer: PCP Institutional Level of Care: Skilled - Diagnosis (1) Arthritis of knee, right Priority: Primary Status: Acute (2) Status post total right knee replacement Priority: Primary Status: Acute (3) Hypertension Priority: Secondary Status: Chronic (4) Chronic renal failure, stage 3 (moderate) Priority: Secondary Status: Chronic (5) Morbid obesity with BMI of 60.0-69.9, adult Priority: Secondary Status: Chronic Expected Duration of Placement: < 30 days Prognosis: Good Aware of Diagnosis: Patient Aware of Prognosis: Patient - Transfer Medications Prescriptions: OxyCODONE Immed Rel [Roxicodone 5 MG] 5 mg PO Q6HR PRN 7 Days #28 tablet PRN Reason: Severe Pain Aspirin Enteric Coated [Aspirin EC] 325 mg PO BID #20 tablet. Home Medications: Allopurinol [Zyloprim 100 MG] 100 mg PO BID 09/13/16 [History] Furosemide [Lasix] 20 mg PO DAILY PRN 09/13/16 [History] Metoprolol XL (24 HR) Succ [Toprol Xl] 50 mg PO DAILY 09/13/16 [History] Prazosin HCl [Minipress] 2 mg PO BID 09/13/16 [History] Cetirizine HCl [All Day Allergy] 10 mg PO DAILY PRN #0 09/24/16 [Rx] Aspirin Enteric Coated [Aspirin EC] 325 mg PO BID #20 tablet. 08/21/17 [Rx] OxyCODONE Immed Rel [Roxicodone 5 MG] 5 mg PO Q6HR PRN 7 Days #28 tablet [Rx] Acetaminophen [Tylenol] 500 mg PO BID PRN 08/24/17 [History] Quinapril HCl [Accupril] 20 mg PO DAILY 08/24/17 [History] Allergies/Adverse Reactions: 3 Allergy/AdvReac Type Severity Reaction Status Date / Time latex Allergy Hives Verified 08/24/17 08:39 melon Allergy Hives Verified 08/24/17 08:39 - Respiratory Orders None Smoking Cessation: Smoking cessation has been advised. For more information, call the [place] Tobacco Quit Line at 9-376-BJKK-NOW. - Ancillary Orders May use pressure relief devices daily prn - Mobility Orders Chair, Ambulate - Rehabiliation Orders Rehab Potential: Good Rehab Orders: ROM Exercises, Evaluation for Physical Therapy, Evaluation for Occupational Therapy - Treatments List/Other: Knee Continuity: Opsite dressing, leave intact until first post-operative visit. If dressing becomes >50% saturated, contact office, remove dressing and place appropriate dressing in its place. Do not allow for dressing to get wet. Zipline/Okay in place, plan to remove at post-operative day #14-16. Total Joint Precautions x 6 weeks Apply cold therapy wrap 3-6x/day for 20 minutes at a time. Encourage ambulation throughout the day Use Incentive spirometer 10x/hour. Elevate affected extremity above heart as tolerated. Brace: Wear knee immobilizer at night x 2 weeks.~ - Diet Orders Regular CERTIFICATION: I certify that the transfer of the above named patient to an Extended Care Facility is necessary for the continuing treatment of the diagnosis listed. The above information is true and accurate reflection of patient's current condition. Confidential - Redisclosure prohibited without a patient's written consent.
[2017-08-25] MEDS: Lisinopril 20 MG TABLET PO SCH (19:54)
[2017-08-25] MEDS: traMADol 50 MG TABLET PO PRN (23:23)
[2017-08-26 02:26] LABS: Hematocrit 31.7 % (35.3-44.9)
[2017-08-26 02:29] LABS: Hemoglobin 10.1 g/dL (11.5-15.4)
[2017-08-26 02:47] LABS: Calcium 8.6 mg/dL (8.6-10.3); Potassium 4.2 mEq/L (3.5-5.1)
[2017-08-26] MEDS: *HR* Enoxaparin 30 MG/0.3 ML SYRINGE SQ SCH ×2 (05:55→16:24)
--- NOTE | 2017-08-26 06:45 | Orthopedics Progress Note ---
Date of Encounter: 08/26/17 Time of Encounter: 06:45 - Assessment and Plan (1) Morbid obesity with BMI of 50.0-59.9, adult Current Visit: Yes Status: Chronic (2) Status post total left knee replacement Current Visit: Yes Status: Chronic (3) Hypertension Current Visit: No Status: Chronic Qualifiers: Hypertension type: essential hypertension Qualified Code(s): I10 - Essential (primary) hypertension (4) Chronic renal failure, stage 3 (moderate) Current Visit: No Status: Chronic (5) Arthritis of knee, right Current Visit: No Status: Acute (6) Status post total right knee replacement Current Visit: No Status: Acute Subjective Interval history: Patient was seen this morning doing well without complaints. Afebrile vital signs stable. Operative extremity: Neurovascularly intact Dressing clean dry and intact Calves nontender Assessment and plan: Continue with postoperative care Hematocrit 31 Objective Vital signs: Vital Signs Temp Pulse Resp BP Pulse Ox 08/26/17 03:51 97.9 F 54 14 161/77 93 08/25/17 23:10 97.8 F 54 14 134/66 94 08/25/17 18:47 98.1 F 54 16 141/79 97 08/25/17 16:06 97.6 F 55 15 112/45 97 08/25/17 11:15 97.7 F 60 18 130/69 96 08/25/17 07:41 98.6 F 68 18 118/68 97 Intake and Output 08/25/17 08/25/17 08/26/17 15:59 23:59 07:59 Intake Total 480 / 480 440 / 440 300 / 300 Output Total 150 / 150 300 / 300 Balance 480 / 480 290 / 290 0 / 0 Intake: Oral 480 / 480 440 / 440 300 / 300 Output: Urine 150 / 150 300 / 300 Other: Meal Lunch Dinner Percent of Meal Consumed 100% 70% # Voids 2 - Labs CBC & BMP: 08/26/17 01:56 08/26/17 01:56 Labs: Abnormal lab results Hgb 10.1 g/dL (11.5-15.4) L D 08/26/17 01:56 Hct 31.7 % (35.3-44.9) L 08/26/17 01:56 BUN 36 mg/dL (8-23) H 08/26/17 01:56 Creatinine 1.84 mg/dL (0.60-1.20) H 08/26/17 01:56 Est GFR ( Amer) 33 (> 60) L 08/26/17 01:56 Est GFR (Non-Af Amer) 27 (> 60) L 08/26/17 01:56 Glucose 116 mg/dL (70-105) H 08/26/17 01:56 - VTE Documentation of Mechanical Device: Venous foot pump, device Consult Discharge Plan - Plan Referrals: Brad Davis DO [Primary Care Provider] -
[2017-08-26] MEDS: traMADol 50 MG TABLET PO PRN (07:47)
[2017-08-26] MEDS: *HR* OxyCODONE/APAP 5/325 TABLET PO PRN ×4 (09:45→21:53)
[2017-08-26] MEDS: Metoprolol XL (24 HR) Succ 50 MG TAB.ER.24H PO SCH (13:25)
[2017-08-26] MEDS: Lisinopril 20 MG TABLET PO SCH (20:04)
[2017-08-27] MEDS: *HR* OxyCODONE/APAP 5/325 TABLET PO PRN ×4 (02:30→16:34)
[2017-08-27] MEDS: *HR* Enoxaparin 30 MG/0.3 ML SYRINGE SQ SCH ×2 (06:00→16:35)
--- NOTE | 2017-08-27 06:22 | Orthopedics Progress Note ---
Date of Encounter: 08/27/17 Time of Encounter: 06:22 - Assessment and Plan (1) Morbid obesity with BMI of 50.0-59.9, adult Current Visit: Yes Status: Chronic (2) Status post total left knee replacement Current Visit: Yes Status: Chronic (3) Hypertension Current Visit: No Status: Chronic Qualifiers: Hypertension type: essential hypertension Qualified Code(s): I10 - Essential (primary) hypertension (4) Chronic renal failure, stage 3 (moderate) Current Visit: No Status: Chronic (5) Arthritis of knee, right Current Visit: No Status: Acute (6) Status post total right knee replacement Current Visit: No Status: Acute Subjective Interval history: Patient was seen this morning doing well without complaints. Afebrile vital signs stable. Operative extremity: Neurovascularly intact Dressing clean dry and intact Calves nontender Assessment and plan: Continue with postoperative care Discharged tomorrow Objective Vital signs: Vital Signs Temp Pulse Resp BP Pulse Ox 08/27/17 00:28 98.3 F 63 13 134/74 95 08/26/17 19:55 97.9 F 58 14 136/75 96 08/26/17 15:53 97.8 F 53 16 111/71 97 08/26/17 13:40 53 138/71 08/26/17 13:22 98 F 52 16 96/62 98 08/26/17 07:58 97.9 F 65 16 124/65 97 Intake and Output 08/26/17 08/26/17 08/27/17 15:59 23:59 07:59 Intake Total 200 / 200 Output Total 300 / 300 Balance -100 / -100 Intake: Oral 200 / 200 Output: Urine 300 / 300 Other: # Voids 1 1 - Labs CBC & BMP: 08/26/17 01:56 08/26/17 01:56 Labs: Abnormal lab results Hgb 10.1 g/dL (11.5-15.4) L D 08/26/17 01:56 Hct 31.7 % (35.3-44.9) L 08/26/17 01:56 BUN 36 mg/dL (8-23) H 08/26/17 01:56 Creatinine 1.84 mg/dL (0.60-1.20) H 08/26/17 01:56 Est GFR ( Amer) 33 (> 60) L 08/26/17 01:56 Est GFR (Non-Af Amer) 27 (> 60) L 08/26/17 01:56 Glucose 116 mg/dL (70-105) H 08/26/17 01:56 - VTE Documentation of Mechanical Device: Venous foot pump, device Consult Discharge Plan - Plan Referrals: Brad Davis DO [Primary Care Provider] -
[2017-08-27] MEDS: traMADol 50 MG TABLET PO PRN (08:47)
[2017-08-27] MEDS: Metoprolol XL (24 HR) Succ 50 MG TAB.ER.24H PO SCH (12:39)
[2017-08-27] MEDS: Lisinopril 20 MG TABLET PO SCH (21:12)
[2017-08-28] MEDS: *HR* OxyCODONE/APAP 5/325 TABLET PO PRN ×3 (01:05→10:42)
[2017-08-28] MEDS: Ringers Solution, Lactated 1,000 ML IVC SCH ×3 (06:54→10:43)
[2017-08-28] MEDS: *HR* Enoxaparin 30 MG/0.3 ML SYRINGE SQ SCH (07:36)
[2017-08-28 07:56] VITALS: BP 102/66
--- NOTE | 2017-08-28 07:57 | Orthopedics Progress Note ---
Date of Encounter: 08/28/17 Time of Encounter: 07:57 - Assessment and Plan (1) Morbid obesity with BMI of 50.0-59.9, adult Current Visit: Yes Status: Chronic (2) Status post total left knee replacement Current Visit: Yes Status: Chronic (3) Hypertension Current Visit: No Status: Chronic Qualifiers: Hypertension type: essential hypertension Qualified Code(s): I10 - Essential (primary) hypertension (4) Chronic renal failure, stage 3 (moderate) Current Visit: No Status: Chronic (5) Arthritis of knee, right Current Visit: No Status: Acute (6) Status post total right knee replacement Current Visit: No Status: Acute Subjective Interval history: Patient was seen this morning doing well without complaints. Afebrile vital signs stable. Operative extremity: Neurovascularly intact Dressing clean dry and intact Calves nontender Assessment and plan: Continue with postoperative care Discharged today Objective Vital signs: Vital Signs Temp Pulse Resp BP Pulse Ox 08/28/17 07:56 98.5 F 90 15 102/66 96 08/28/17 00:32 98.7 F 80 15 179/78 95 08/27/17 18:29 97.8 F 64 14 109/67 92 08/27/17 17:25 98.4 F 94 17 136/78 95 08/27/17 08:00 97.4 F L 107 14 103/60 95 Intake and Output 08/27/17 08/27/17 08/28/17 15:59 23:59 07:59 Intake Total 600 / 600 240 / 240 Balance 600 / 600 240 / 240 Intake: Oral 600 / 600 240 / 240 Other: Meal Lunch Dinner Percent of Meal Consumed 15% 80% # Voids 1 - Labs CBC & BMP: 08/26/17 01:56 08/26/17 01:56 Labs: Abnormal lab results Hgb 10.1 g/dL (11.5-15.4) L D 08/26/17 01:56 Hct 31.7 % (35.3-44.9) L 08/26/17 01:56 BUN 36 mg/dL (8-23) H 08/26/17 01:56 Creatinine 1.84 mg/dL (0.60-1.20) H 08/26/17 01:56 Est GFR ( Amer) 33 (> 60) L 04/13/18 01:56 Est GFR (Non-Af Amer) 27 (> 60) L 08/26/17 01:56 Glucose 116 mg/dL (70-105) H 08/26/17 01:56 - VTE Documentation of Mechanical Device: Venous foot pump, device Consult Discharge Plan - Plan Referrals: Brad Davis DO [Primary Care Provider] -
[2017-08-28] MEDS: Metoprolol XL (24 HR) Succ 50 MG TAB.ER.24H PO SCH (12:28)
== END 2017-08-28 12:34 | DRG 470 ==
LOC: SAMDAY 08:04 → 3NENU 13:09
PROVIDERS: ADMIT Orthopaedic Surgery; ATTEND Orthopaedic Surgery